=== PATIENT | male | born 1980 | race Caucasian/White ===

== ENCOUNTER 2022-07-29 12:11 | Outpatient (CLI) | payer BC, SELFPAY ==
[2022-07-29 14:22] LABS: Chloride* 98 mmol/L (96-114)
[2022-07-29 14:23] LABS: Potassium* 4.9 mmol/L (3.6-5.1); Sodium* 132 mmol/L (135-149)
[2022-07-29 14:25] LABS: Cholesterol* 167 mg/dL (90-199); Creatinine* 0.8 mg/dL (0.5-1.5); Estimated Glomerular Filt Rate 115 ml/min
[2022-07-29 14:26] LABS: Alanine Aminotransferase* 48 U/L (4-50); Blood Urea Nitrogen* 18 mg/dL (5-24); Calcium* 9.2 mg/dL (8.4-10.6); Carbon Dioxide* 26 mmol/L (20-32); Triglycerides* 190 mg/dL (40-149)
[2022-07-29 14:27] LABS: HDL Cholesterol* 69 mg/dL (>=40); LDL Cholesterol Calculated 60 mg/dL (<100)
[2022-07-29 15:42] LABS: Glucose* 362 mg/dL (60-115)
== END 2022-07-29 12:12 | disposition home or self-care (01) ==
PROVIDERS: PCP Family Medicine; Visit Provider Family Medicine
DX: E10.9 Type 1 diabetes mellitus without complications (principal); E78.5 Hyperlipidemia, unspecified
CPT/HCPCS: 80048; 80061; 84460

== ENCOUNTER 2025-03-31 11:37 | Outpatient (CLI) | payer BC, SELFPAY | END 2025-03-31 11:38 | disposition home or self-care (01) | LOC: FBOREF 11:38 | PROVIDERS: PCP Family Medicine; Visit Provider Family Medicine | DX: E78.2 Mixed hyperlipidemia (principal); E10.9 Type 1 diabetes mellitus without complications; I10 Essential (primary) hypertension | CPT/HCPCS: 80048; 80061; 84460 ==